=== PATIENT | male | born 1960 | race Caucasian/White ===

== ENCOUNTER 2024-03-31 03:35 | Inpatient (IN) | payer OTHER ==
[2024-03-31] MEDS ORDERED: LIDOCAINE 4% PATCH TP ONE ×2 (04:33→07:50)
[2024-03-31] MEDS ORDERED: KETOROLAC TROMETHAMINE 30 MG/1 ML VIAL ONE ×2 (04:34→09:55)
[2024-03-31] MEDS: KETOROLAC TROMETHAMINE 30 MG/1 ML VIAL IM ONE (04:38)
[2024-03-31] MEDS: LIDOCAINE 4% PATCH TP ONE (04:38)
[2024-03-31 08:48] LABS: BASO % 0.4 % (0-2.0); EOS % 0.5 % (0-4.5); HEMATOCRIT 34.4 % (35.4-49); HEMOGLOBIN 10.7 GM/dL (11.7-16.9); LYMPH % 15.8 % (8-40); MCH 24.3 pg (25.7-33.7); MCHC 31.1 g/dl (32.0-35.9); MEAN CELL VOLUME 78.2 fl (80-96); MEAN PLT VOLUME 8.9 fl (7.5-11.1); NEUT % 76.3 % (42.8-82.8); PLATELET COUNT 395 10^3/uL (134-434); RBC 4.39 M/mm3 (4.00-5.60); RDW 15.5 % (11.9-15.9); WHITE BLOOD COUNT 11.5 K/mm3 (4.0-10.0)
[2024-03-31 08:59] LABS: CHLORIDE 110 mmol/L (98-107); SODIUM 141 mmol/L (136-145)
[2024-03-31 09:01] LABS: CALCIUM 9.8 mg/dL (8.5-10.1)
[2024-03-31 09:02] LABS: ALBUMIN 2.8 g/dl (3.4-5.0); CO2 26 mmol/L (21-32); GLUCOSE,RANDOM 101 mg/dL (74-106)
[2024-03-31 09:04] LABS: SGPT/ALT 191 U/L (13-61)
[2024-03-31 09:05] LABS: SGOT/AST 103 U/L (15-37)
[2024-03-31 09:06] LABS: BILIRUBIN,TOTAL 0.5 mg/dL (0.2-1); TOT PROT 8.3 g/dl (6.4-8.2)
[2024-03-31 09:07] LABS: ALK PHOS 312 U/L (45-117)
[2024-03-31 09:10] LABS: ANION GAP 5 mmol/L (4-13); POTASSIUM 6.4 mmol/L (3.5-5.1)
[2024-03-31] MEDS: KETOROLAC TROMETHAMINE 30 MG/1 ML VIAL IVPUSH ONE (10:00)
[2024-03-31 10:37] LABS: POTASSIUM 3.6 mmol/L (3.5-5.1)
[2024-03-31 10:38] LABS: BLOOD UREA NITROGEN 15.5 mg/dL (7-18); CALCIUM 9.6 mg/dL (8.5-10.1)
[2024-03-31 11:42] VITALS: BMI 25.3
[2024-03-31] MEDS: CycloBENZAprine HCL 10 MG TABLET (FP) PO SCH (14:12)
[2024-03-31] MEDS: oxyCODONE HCL 5 MG TABLET PO PRN (16:02)
[2024-03-31] MEDS: IRON SUCROSE INJECTION 200 MG in SODIUM CHLORIDE 100 ML IVPB ONE (17:19)
[2024-03-31] MEDS: LIDOCAINE PATCH REMOVAL MC ONE (18:34)
[2024-03-31] MEDS ORDERED: ATORVASTATIN CA 40 MG TABLET (FP) PO SCH (22:00)
[2024-04-01] MEDS: KETOROLAC TROMETHAMINE 15 MG/ML VIAL IVPUSH PRN (03:34)
[2024-04-01] MEDS: VALSARTAN 80 MG TABLET PO SCH (09:30)
[2024-04-01] MEDS: IRON SUCROSE INJECTION 200 MG in SODIUM CHLORIDE 100 ML IVPB ONE (09:31)
[2024-04-01] MEDS: POLYETHYLENE GLYCOL (HEALTHYLAX) 3350 17 GM PACKET PO SCH (09:31)
[2024-04-01 09:34] LABS: BASO % 0.5 % (0-2.0); EOS % 1.1 % (0-4.5); HEMATOCRIT 32.3 % (35.4-49); HEMOGLOBIN 10.6 GM/dL (11.7-16.9); INR 1.25 (0.83-1.09); LYMPH % 23.1 % (8-40); MCHC 32.7 g/dl (32.0-35.9); MEAN CELL VOLUME 76.4 fl (80-96); MEAN PLT VOLUME 8.4 fl (7.5-11.1); MONO % 8.3 % (3.8-10.2); PLATELET COUNT 334 10^3/uL (134-434); PROTHROMBIN TIME (PATIENT) 13.6 SEC (9.7-13.0); RBC 4.23 M/mm3 (4.00-5.60); RDW 15.1 % (11.9-15.9); WHITE BLOOD COUNT 8.2 K/mm3 (4.0-10.0)
[2024-04-01 09:48] LABS: ALBUMIN 2.5 g/dl (3.4-5.0); BLOOD UREA NITROGEN 12.8 mg/dL (7-18); CALCIUM 9.4 mg/dL (8.5-10.1)
[2024-04-01 09:52] LABS: CREATININE 0.8 mg/dL (0.55-1.3)
[2024-04-01 09:53] LABS: BILIRUBIN,TOTAL 0.3 mg/dL (0.2-1); TOT PROT 7.2 g/dl (6.4-8.2)
[2024-04-01 13:25] LABS: EPI CELLS 10 /uL (0-25.1); HYALINE CASTS 1 /uL (0-3.1); PH,URINE 6.5 (5.0-8.0); URINE APPEARANCE CLOUDY; URINE BILIRUBIN NEGATIVE (NEGATIVE); URINE COLOR YELLOW; URINE GLUCOSE (UA) NEGATIVE (NEGATIVE); URINE KETONE NEGATIVE (NEGATIVE); URINE LEUK ESTERASE 3+ (NEGATIVE); URINE NITRITE POSITIVE (NEGATIVE); URINE PROTEIN TRACE (NEGATIVE); URINE RBC 161 /uL (0-23.9); URINE UROBILINOGEN 0.2 mg/dL (0.2-1.0); URINE WBC 1827 /uL (0-25.8)
[2024-04-01 14:16] LABS: URINE BACTERIA 1282 /uL (0-1359); YEAST NONE SEEN (NEGATIVE)
[2024-04-01] MEDS: ENOXAPARIN NA (PORCINE) 40 MG/0.4 ML DISP.SYRIN SQ SCH (18:00)
[2024-04-01] MEDS: PIPERACILLIN/TAZOB 3.375 GM 50 ML IVPB SCH (18:44)
[2024-04-01] MEDS: VANCOMYCIN 1 GM PREMIX (F) 1 GM/200 ML BAG IVPB ONE (19:34)
[2024-04-02] MEDS: GABAPENTIN 100 MG CAPSULE PO SCH (09:47)
[2024-04-02] MEDS: LIDOCAINE 5% TOPICAL PATCH TP SCH (09:51)
[2024-04-02 11:34] LABS: BASO % 0.8 % (0-2.0); EOS % 1.2 % (0-4.5); HEMATOCRIT 31.3 % (35.4-49); HEMOGLOBIN 10.3 GM/dL (11.7-16.9); LYMPH % 14.1 % (8-40); MCH 24.9 pg (25.7-33.7); MCHC 32.8 g/dl (32.0-35.9); MEAN CELL VOLUME 75.9 fl (80-96); MEAN PLT VOLUME 8.3 fl (7.5-11.1); MONO % 8.3 % (3.8-10.2); NEUT % 75.6 % (42.8-82.8); PLATELET COUNT 313 10^3/uL (134-434); RBC 4.13 M/mm3 (4.00-5.60); RDW 15.4 % (11.9-15.9); WHITE BLOOD COUNT 8.7 K/mm3 (4.0-10.0)
[2024-04-02 11:35] LABS: INR 1.22 (0.83-1.09); PROTHROMBIN TIME (PATIENT) 13.4 SEC (9.7-13.0)
[2024-04-02 11:58] LABS: POTASSIUM 3.7 mmol/L (3.5-5.1)
[2024-04-02 12:02] LABS: ALBUMIN 2.4 g/dl (3.4-5.0); BLOOD UREA NITROGEN 15.8 mg/dL (7-18); CALCIUM 9.2 mg/dL (8.5-10.1)
[2024-04-02 12:05] LABS: CREATININE 0.9 mg/dL (0.55-1.3)
[2024-04-02 12:07] LABS: BILIRUBIN,TOTAL 0.4 mg/dL (0.2-1); TOT PROT 6.8 g/dl (6.4-8.2)
[2024-04-02] MEDS: PIPERACILLIN/TAZOB 3.375 GM 3.375 GM in DEXTROSE 5%-WATER - 50 ML IVPB SCH (15:44)
[2024-04-02] MEDS: VALSARTAN 160 MG TABLET PO SCH (21:59)
[2024-04-02] MEDS: LIDOCAINE PATCH REMOVAL MC SCH (21:59)
[2024-04-03] MEDS: SENNOSIDES 8.6MG TABLET (FP) PO SCH (11:33)
[2024-04-03] MEDS: DOCUSATE SODIUM 100 MG CAPSULE (FP) PO ONE (11:33)
[2024-04-03] MEDS: POLYETHYLENE GLYCOL (HEALTHYLAX) 3350 17 GM PACKET PO SCH (13:17)
[2024-04-03] MEDS: BISACODYL 10 MG SUPP.RECT PR PRN (13:41)
[2024-04-03] MEDS: ACETAMINOPHEN 325 MG TABLET (FP) PO ONE (23:02)
[2024-04-04] MEDS: oxyCODONE HCL 5 MG TABLET PO PRN (18:22)
[2024-04-04] MEDS: ACETAMINOPHEN 325 MG TABLET (FP) PO ONE (23:38)
[2024-04-05] MEDS ORDERED: PROPOFOL 20 ML ONE (07:41)
[2024-04-05] MEDS ORDERED: MIDAZOLAM HCL 2 MG/2 ML SINGLE DOSE VIAL ONE (07:42)
[2024-04-05] MEDS ORDERED: ROCURONIUM BROMIDE 50 MG/5 ML SYRINGE ONE ×2 (07:43→09:32)
[2024-04-05] MEDS ORDERED: ceFAZolin SODIUM 1 GM VIAL ONE ×2 (07:44→08:57)
[2024-04-05] MEDS: ceFAZolin SODIUM 1 GM VIAL IVPB ONE ×2 (08:55→09:30)
[2024-04-05] MEDS ORDERED: DEXAMETHASONE SOD PHOSPHATE 4 MG/1 ML VIAL ONE (08:57)
[2024-04-05] MEDS: GENTAMICIN 80MG PREMIX BAG IVPB ONE (10:00)
[2024-04-05] MEDS ORDERED: HYDROmorphone HCl 2 MG/ML VIAL ONE (10:01)
[2024-04-05] MEDS ORDERED: SUGAMMADEX SODIUM 200 MG/2 ML VIAL ONE (10:10)
[2024-04-05] MEDS ORDERED: NYSTATIN 500,000 UNITS/5 ML SUSPENSION PO SCH (12:00)
[2024-04-05] MEDS: SODIUM CHLORIDE 1,000 ML IV SCH (12:20)
[2024-04-05] MEDS: NYSTATIN 500,000 UNITS/5 ML SUSPENSION PO SCH (12:33)
[2024-04-05] MEDS: CEFAZOLIN 2 GM/D5W 2 GM/50 ML ML IVPB SCH (12:35)
[2024-04-05] MEDS: CEFEPIME 2 GM in DEXTROSE 5%-WATER 100 ML IVPB SCH (15:51)
[2024-04-05] MEDS: VANCOMYCIN 1 GM PREMIX (F) 1 GM/200 ML BAG IVPB SCH (18:24)
[2024-04-05] MEDS ORDERED: CEFAZOLIN 2 GM/D5W 2 GM/50 ML ML IVPB SCH (18:45)
[2024-04-05] MEDS: MINERAL OIL ENEMA 133 ML ENEMA RC ONE (21:51)
[2024-04-05] MEDS: VALSARTAN 160 MG TABLET PO SCH (21:51)
[2024-04-05] MEDS: POLYETHYLENE GLYCOL (HEALTHYLAX) 3350 17 GM PACKET PO SCH (21:51)
[2024-04-05] MEDS ORDERED: SENNOSIDES 8.6MG TABLET (FP) PO SCH (22:00)
[2024-04-06] MEDS: oxyCODONE HCL 5 MG TABLET PO PRN (03:07)
[2024-04-06] MEDS: BACLOFEN 10 MG TABLET (FP) PO ONE (07:19)
[2024-04-06] MEDS: diazePAM 5 MG TABLET PO PRN (09:50)
[2024-04-06] MEDS: ENOXAPARIN NA (PORCINE) 40 MG/0.4 ML DISP.SYRIN SQ SCH (19:22)
[2024-04-07 08:53] LABS: BASO % 0.4 % (0-2.0); EOS % 0.4 % (0-4.5); HEMATOCRIT 34.9 % (35.4-49); LYMPH % 13.9 % (8-40); MCH 24.4 pg (25.7-33.7); MCHC 31.4 g/dl (32.0-35.9); MEAN CELL VOLUME 77.7 fl (80-96); MEAN PLT VOLUME 8.8 fl (7.5-11.1); MONO % 9.8 % (3.8-10.2); NEUT % 75.5 % (42.8-82.8); PLATELET COUNT 365 10^3/uL (134-434); RBC 4.49 M/mm3 (4.00-5.60); RDW 15.5 % (11.9-15.9); WHITE BLOOD COUNT 11.4 K/mm3 (4.0-10.0)
[2024-04-07] MEDS: METHYLNALTREXONE BROMIDE 8 MG/0.4 ML SYRINGE SQ SCH (09:10)
[2024-04-07 09:18] LABS: CALCIUM 9.5 mg/dL (8.5-10.1)
[2024-04-07 09:19] LABS: ALBUMIN 2.4 g/dl (3.4-5.0); BLOOD UREA NITROGEN 14.4 mg/dL (7-18)
[2024-04-07 09:22] LABS: CREATININE 0.9 mg/dL (0.55-1.3)
[2024-04-07 09:23] LABS: BILIRUBIN,TOTAL 0.6 mg/dL (0.2-1)
[2024-04-08 08:10] LABS: BASO % 0.5 % (0-2.0); EOS % 0.7 % (0-4.5); HEMATOCRIT 33.3 % (35.4-49); HEMOGLOBIN 10.4 GM/dL (11.7-16.9); LYMPH % 14.6 % (8-40); MCHC 31.1 g/dl (32.0-35.9); MEAN CELL VOLUME 77.2 fl (80-96); MEAN PLT VOLUME 8.5 fl (7.5-11.1); MONO % 10.2 % (3.8-10.2); PLATELET COUNT 401 10^3/uL (134-434); RBC 4.32 M/mm3 (4.00-5.60); RDW 15.8 % (11.9-15.9); WHITE BLOOD COUNT 11.1 K/mm3 (4.0-10.0)
[2024-04-08 08:31] LABS: POTASSIUM 4.1 mmol/L (3.5-5.1)
[2024-04-08 08:38] LABS: ALBUMIN 2.4 g/dl (3.4-5.0); BLOOD UREA NITROGEN 21.3 mg/dL (7-18); CALCIUM 9.7 mg/dL (8.5-10.1)
[2024-04-08 08:42] LABS: CREATININE 0.8 mg/dL (0.55-1.3)
[2024-04-08 08:43] LABS: BILIRUBIN,TOTAL 0.5 mg/dL (0.2-1); TOT PROT 7.2 g/dl (6.4-8.2)
[2024-04-08] MEDS ORDERED: LORazepam 1 MG TABLET PO PRN (09:22)
[2024-04-08] MEDS: MEROPENEM-0.9% SODIUM CHLORIDE 1 GM/50 ML BAG IVPB SCH (09:32)
[2024-04-08] MEDS: BISACODYL 10 MG SUPP.RECT PR ONE (09:34)
[2024-04-08] MEDS: diazePAM 2 MG TABLET PO SCH (09:34)
[2024-04-08 19:25] VITALS: RESP 18
[2024-04-09] MEDS: oxyCODONE HCL 5 MG TABLET PO PRN (04:47)
[2024-04-10 00:53] VITALS: BP 125/81; PULSE 100; TEMP 98.6
== END 2024-04-10 00:55 | DRG 304 ==
LOC: JER 03:35 → UNDOADMOB 08:47 → INTOOBSV 08:47 → JERBED 08:47 → J8W 11:18 → OBSVTOIN 04-05 10:57
PROVIDERS: ADMIT Internal Medicine; ATTEND Internal Medicine
PROC: 01NB0ZZ Release Lumbar Nerve, Open Approach (ICD-10-PCS; 2024-04-05)
PROC: 0QB00ZX Excision of Lumbar Vertebra, Open Approach, Diagnostic (ICD-10-PCS; 2024-04-05)
PROC: 0SB20ZZ Excision of Lumbar Vertebral Disc, Open Approach (ICD-10-PCS; 2024-04-05)
PROC: 4A11X4G Monitoring of Peripheral Nervous Electrical Activity, Intraoperative, External Approach (ICD-10-PCS; 2024-04-05)
PROC: 0SG00AJ Fusion of Lumbar Vertebral Joint with Interbody Fusion Device, Posterior Approach, Anterior Column, Open Approach (ICD-10-PCS; principal; 2024-04-05 08:00)
PROC: 02HV33Z Insertion of Infusion Device into Superior Vena Cava, Percutaneous Approach (ICD-10-PCS; 2024-04-09)
DX: M46.46 Discitis, unspecified, lumbar region (principal); M48.061 Spinal stenosis, lumbar region without neurogenic claudication; M46.26 Osteomyelitis of vertebra, lumbar region; E87.5 Hyperkalemia; R32 Unspecified urinary incontinence; I10 Essential (primary) hypertension; E78.5 Hyperlipidemia, unspecified; J44.9 Chronic obstructive pulmonary disease, unspecified; R79.89 Other specified abnormal findings of blood chemistry; K59.00 Constipation, unspecified
CPT/HCPCS: 36415; 36569; 72040-TC; 72070-TC-FY; 72110-TC-FY; 72131-TC; 72141-TC; 72157-TC; 72158-TC; 76000-TC-FY; 76705-TC; 80048; 80053; 81003; 82272; 82308; 82550; 82728; 82977; 83540; 83550; 84134; 85025; 85610; 85651; 86140; 86704; 86708; 86803; 86850; 86900; 86901; 87040; 87070; 87075; 87086; 87102; 87116; 87186; 87205; 87206; 87210; 87340; 87517; 87635; 93306-TC; 94760; 97116-GP; 97161-GP; 99285-25; C1713; G0378; G0480; J0475; J1756

== ENCOUNTER 2024-12-04 13:32 | Emergency (ER) | payer MEDICARE, OTHER ==
[2024-12-04 13:40] VITALS: RESP 16; BMI 29.2
[2024-12-04] MEDS ORDERED: ACETAMINOPHEN 500 MG TABLET (FP) ONE (14:19)
[2024-12-04] MEDS: ACETAMINOPHEN 500 MG TABLET (FP) PO ONE (14:23)
[2024-12-04 14:37] LABS: ABSOLUTE IMMATURE GRANULOCYTES 0.03 x10^3/uL (0.0-0.031); BASOPHILS # 0.05 x10^3/uL (0.01-0.08); EOSINOPHIL % 0.7 % (0.8-7.0); EOSINOPHILS # 0.07 x10^3/uL (0.04-0.54); MCHC 31.3 g/dl (32.3-36.5); MEAN CELL VOLUME 83.3 fl (79.0-92.2); MEAN PLT VOLUME 12.0 fl (9.4-12.4); MONOCYTE # 0.72 x10^3/uL (0.30-0.82); MONOCYTE % 6.9 % (5.3-12.2); RDW 15.2 % (12.2-16.4)
[2024-12-04 15:04] LABS: GLUCOSE,RANDOM 103.0 mg/dL (74-106)
[2024-12-04 15:05] LABS: TOT PROT 7.8 g/dl (6.4-8.2)
[2024-12-04 15:06] LABS: CO2 21.0 mmol/L (21-32)
[2024-12-04 15:07] LABS: ALK PHOS 152.0 U/L (40-150)
[2024-12-04 15:10] LABS: CREATININE 1.13 mg/dL (0.55-1.3); SGOT/AST 25.0 U/L (5-34); SGPT/ALT 23.0 U/L (0-55)
[2024-12-04 15:30] LABS: HCV DIAGNOSTIC IN-HOUSE W/RFLX NON-REACTIVE (NONREACTIVE)
[2024-12-04 15:31] LABS: HIV INTERPRETATION NEGATIVE (NEGATIVE)
[2024-12-04 15:34] LABS: URINE APPEARANCE CLEAR; URINE BILIRUBIN NEGATIVE (NEGATIVE); URINE COLOR YELLOW; URINE GLUCOSE (UA) NEGATIVE (NEGATIVE); URINE KETONE NEGATIVE (NEGATIVE); URINE PROTEIN NEGATIVE (NEGATIVE)
[2024-12-04 15:35] LABS: URINE LEUK ESTERASE 1+ (NEGATIVE); URINE NITRITE NEGATIVE (NEGATIVE); URINE UROBILINOGEN 0.2 mg/dL (0.2-1.0)
[2024-12-04 17:33] VITALS: BP 148/96; PULSE 80; TEMP 97.5
== END 2024-12-04 17:46 | disposition home or self-care (01) ==
LOC: JER 13:32
DX: N50.812 Left testicular pain (principal)
CPT/HCPCS: 36415; 76870-TC; 80053; 81003; 85025; 86803; 87086; 87389; 99284-25